=== PATIENT | male | born 1935 | race Caucasian/White ===

== ENCOUNTER 2021-10-05 10:25 | Outpatient (CLI) | payer MEDICARE, OTHER ==
[2021-10-05 11:58] LABS: Hemoglobin 13.6 g/dL (13.5-17.5); Mean Corpuscular HGB CONC 31.5 g/dL (32.0-36.0); Mean Corpuscular Hemoglobin 30.8 pg (27.0-33.0); Mean Corpuscular Volume 97.7 fl (81.2-95.1); Mean Platelet Volume 10.3 fl (7.4-10.4); Platelet Count 145 10x3/uL (150-450); Red Blood Cell (RBC) Count 4.42 10x6/uL (4.32-5.72); White Blood Cell (WBC) Count 6.9 10x3/uL (3.5-10.5)
[2021-10-05 12:10] LABS: PTT 27.8 sec (22.0-33.0); Prothrombin Time 11.4 sec (9.5-12.1)
[2021-10-05 12:14] LABS: Anion Gap 13 mmol/L (10-20); BUN (Urea Nitrogen) 32 mg/dL (8.4-25.7); Calc. Creatinine Clearance 0 mL/min (70-130); Calcium 9.3 mg/dL (7.8-10.44); Carbon Dioxide 30 mmol/L (23-31); Chloride 100 mmol/L (98-107); Glucose 219 mg/dL (83-110); Potassium 4.5 mmol/L (3.5-5.1); Sodium 138 mmol/L (136-145)
[2021-10-05 20:20] LABS: SARS-CoV-2 PCR by NAA Not Detected (NotDetected)
== END 2021-10-05 10:26 | disposition home or self-care (01) ==
LOC: CSHLAB 10:25
PROVIDERS: ATTEND Specialist
DX: Z01.812 Encounter for preprocedural laboratory examination (principal); Z20.822 Contact with and (suspected) exposure to COVID-19
CPT/HCPCS: 80048; 85027; 85610; 85730; U0003; U0005

== ENCOUNTER 2021-10-08 08:05 | Day surgery (SDC) | payer MEDICARE, OTHER ==
[2021-10-08] MEDS ORDERED: Iopamidol 300 61% 100 ML VIAL FS ONE (09:17)
[2021-10-08] MEDS ORDERED: Iopamidol 300 61% 50 ML VIAL FS ONE (09:17)
[2021-10-08] MEDS ORDERED: Ascorbic Acid 500 mg Chewable Tablet ONE (09:34)
[2021-10-08] MEDS ORDERED: Aspirin 325 MG TAB ONE (09:34)
[2021-10-08] MEDS ORDERED: Acetylcysteine 800 MG/4 ML VIAL ONE ×2 (09:45→09:50)
[2021-10-08] MEDS ORDERED: Nitroglycerin 50 MG/250 ML BOT 0 ML ONE (10:34)
[2021-10-08] MEDS ORDERED: Heparin 10,000 UNITS/ 10 ML VIAL ONE ×2 (10:35→10:37)
[2021-10-08] MEDS ORDERED: Adenosine 6 MG/2 ML VIAL ONE (10:36)
[2021-10-08] MEDS ORDERED: Lidocaine 1% PF 5 ML VIAL ONE (10:48)
[2021-10-08 10:52] VITALS: BP 167/74; TEMP 97.1
[2021-10-08] MEDS ORDERED: FLU VACC QS2021-22(65YR UP)/PF 240 MCG/0.7 ML SYRINGE IM ONE (11:30)
[2021-10-08] MEDS ORDERED: Fentanyl 100 MCG/2 ML VIAL ONE (12:10)
[2021-10-08] MEDS ORDERED: Midazolam HCl 2 mg/2 ml Vial ONE (12:11)
[2021-10-08] MEDS ORDERED: Lidocaine 1% (PF) 30 ML VIAL ONE (12:34)
== END 2021-10-08 16:24 | disposition home or self-care (01) ==
LOC: CSHSDC 08:05
PROVIDERS: ATTEND Specialist
DX: I25.10 Atherosclerotic heart disease of native coronary artery without angina pectoris (principal); I13.0 Hypertensive heart and chronic kidney disease with heart failure and stage 1 through stage 4 chronic kidney disease, or unspecified chronic kidney disease; I50.32 Chronic diastolic (congestive) heart failure; E11.22 Type 2 diabetes mellitus with diabetic chronic kidney disease; N18.9 Chronic kidney disease, unspecified; Z95.1 Presence of aortocoronary bypass graft; Z95.5 Presence of coronary angioplasty implant and graft; Z95.2 Presence of prosthetic heart valve; I27.20 Pulmonary hypertension, unspecified; I05.0 Rheumatic mitral stenosis; I70.1 Atherosclerosis of renal artery
CPT/HCPCS: 36245; 36252; 93461; C1776; 99152; 99153; C1751; J0153; J1644; J2001; J2250; J3010; Q9967

== ENCOUNTER 2022-02-21 21:10 | Inpatient (IN) | payer OTHER, MEDICAID ==
[2022-02-21] MEDS ORDERED: Cefepime 2 GM VIAL ONE ×2 (22:14→22:17)
[2022-02-21 22:25] LABS: %Eosinophils 3.6 % (0.0-6.0); %Lymphocytes 14.7 % (18.0-47.0); %Monocytes 7.9 % (0.0-10.0); %Neutrophils 72.6 % (40.0-75.0); Hemoglobin 11.6 g/dL (13.5-17.5); Mean Corpuscular HGB CONC 32.2 g/dL (32.0-36.0); Platelet Count 136 10x3/uL (150-450); RBC Distribution Width 15.1 % (11.5-14.5); Red Blood Cell (RBC) Count 3.87 10x6/uL (4.32-5.72)
[2022-02-21 22:26] LABS: #Basophils 0.1 10x3/uL (0.0-0.2); #Eosinphils 0.2 10x3/uL (0.0-0.5); #Monocytes 0.4 10x3/uL (0.0-1.1); #Neutrophils 3.6 10x3/uL (1.5-8.4)
[2022-02-21 22:40] LABS: ALT (SGPT) 33 U/L (8-55); AST (SGOT) 35 U/L (5-34); Albumin 3.8 g/dL (3.4-4.8); Alkaline Phosphatase 118 U/L (40-110); Anion Gap 15 mmol/L (10-20); BUN (Urea Nitrogen) 42 mg/dL (8.4-25.7); Calc. Creatinine Clearance 0 mL/min (70-130); Calcium 9.4 mg/dL (7.8-10.44); Carbon Dioxide 25 mmol/L (23-31); Chloride 101 mmol/L (98-107); Estimated GFR 38; Globulin 3.2 g/dL (2.4-3.5); Glucose 154 mg/dL (83-110); Potassium 3.7 mmol/L (3.5-5.1); Sodium 137 mmol/L (136-145)
[2022-02-21] MEDS ORDERED: Vancomycin 1.5 GRAM/300 ML BAG 1.5 GM in Premix Bag 1 BAG IVPB ONE (23:00)
[2022-02-22] MEDS ORDERED: Albuterol Sulfate 2.5 mg/3 ml Neb NEB PRN (03:50)
[2022-02-22] MEDS ORDERED: Dextrose 5% in Water 1,000 ML IV PRN (03:50)
[2022-02-22] MEDS ORDERED: Dextrose 50% Abboject 50 ML SYRINGE SLOW IVP PRN (03:50)
[2022-02-22] MEDS ORDERED: Morphine 4 MG/ML VIAL ONE (04:41)
[2022-02-22 05:32] LABS: #Eosinphils 0.3 10x3/uL (0.0-0.5); #Monocytes 0.4 10x3/uL (0.0-1.1); #Neutrophils 3.9 10x3/uL (1.5-8.4); %Basophils 0.7 % (0.0-2.0); %Eosinophils 5.2 % (0.0-6.0); %Lymphocytes 14.4 % (18.0-47.0); %Monocytes 8.1 % (0.0-10.0); %Neutrophils 71.4 % (40.0-75.0); Hemoglobin 10.9 g/dL (13.5-17.5); Mean Corpuscular HGB CONC 32.8 g/dL (32.0-36.0); Mean Corpuscular Hemoglobin 30.7 pg (27.0-33.0); Mean Corpuscular Volume 93.5 fl (81.2-95.1); Mean Platelet Volume 9.5 fl (7.4-10.4); Platelet Count 125 10x3/uL (150-450); Red Blood Cell (RBC) Count 3.55 10x6/uL (4.32-5.72); White Blood Cell (WBC) Count 5.4 10x3/uL (3.5-10.5)
[2022-02-22 05:45] LABS: Anion Gap 12 mmol/L (10-20); BUN (Urea Nitrogen) 39 mg/dL (8.4-25.7); Calc. Creatinine Clearance 0 mL/min (70-130); Calcium 8.8 mg/dL (7.8-10.44); Carbon Dioxide 25 mmol/L (23-31); Chloride 104 mmol/L (98-107); Estimated GFR 45; Glucose 92 mg/dL (83-110); Potassium 3.4 mmol/L (3.5-5.1); Sodium 138 mmol/L (136-145)
[2022-02-22 07:01] LABS: SARS-CoV-2 NAA Rapid Test Not Detected (NotDetected)
[2022-02-22] MEDS ORDERED: Potassium Chloride 20 MEQ TAB PO SCH (08:00)
[2022-02-22] MEDS: Multivit, Therapeutic 1 TAB PO SCH (08:37)
[2022-02-22] MEDS: Furosemide 20 MG TAB PO SCH ×2 (08:37→21:53)
[2022-02-22] MEDS: Potassium Chloride 10 MEQ TAB PO SCH (08:37)
[2022-02-22] MEDS: Sildenafil Citrate 20 MG TAB PO SCH ×3 (08:37→21:51)
[2022-02-22] MEDS: Cholecalciferol 1,000 UNITS (25 MCG) TAB PO SCH (08:37)
[2022-02-22] MEDS: hydrALAZINE 25 MG TAB PO SCH ×2 (08:37→21:50)
[2022-02-22] MEDS: Aspirin 81 mg Enteric Coated Tablet PO SCH (08:37)
[2022-02-22] MEDS: NPH, Human Insulin Isophane 300 UNIT/3 ML VIAL SQ SCH (08:38)
[2022-02-22] MEDS: Empagliflozin 10 MG TAB PO SCH (08:53)
[2022-02-22] MEDS: Sotalol HCl 80 MG TAB PO SCH ×2 (08:54→21:51)
[2022-02-22] MEDS: Ipratropium Bromide 0.06% Nasal Inhaler 15ml EA NARE SCH ×3 (08:54→17:15)
[2022-02-22] MEDS: Chlorthalidone 25 MG TAB PO SCH ×2 (08:54→21:55)
[2022-02-22] MEDS ORDERED: Apixaban 2.5 MG TAB PO SCH (09:00)
[2022-02-22] MEDS: Cefepime 2 GM in Sodium Chloride 0.9% 100 ML IVPB SCH ×2 (10:44→21:57)
[2022-02-22] MEDS: HumaLOG 300 UNITS/3 ML VIAL SC PRN (12:27)
[2022-02-22] MEDS: Atorvastatin Calcium 40 MG TAB PO SCH (21:50)
[2022-02-22] MEDS: Losartan Potassium 50 MG TAB PO SCH (21:53)
[2022-02-22] MEDS: Tamsulosin HCl 0.4 MG CAP PO SCH (21:57)
[2022-02-22] MEDS ORDERED: Vancomycin HCl 1.25 GM in Sodium Chloride 0.9% 250 ML 250 ML IVPB SCH (23:59)
[2022-02-22] MEDS ORDERED: VANCOMYCIN 1.25 GM/250 ML BAG IVPB SCH (23:59)
[2022-02-23 05:45] LABS: #Eosinphils 0.3 10x3/uL (0.0-0.5); #Monocytes 0.4 10x3/uL (0.0-1.1); #Neutrophils 4.5 10x3/uL (1.5-8.4); %Basophils 0.7 % (0.0-2.0); %Eosinophils 4.2 % (0.0-6.0); %Monocytes 7.3 % (0.0-10.0); %Neutrophils 75.5 % (40.0-75.0); Mean Corpuscular HGB CONC 32.2 g/dL (32.0-36.0); Mean Corpuscular Hemoglobin 30.6 pg (27.0-33.0); Mean Platelet Volume 10.3 fl (7.4-10.4); Platelet Count 144 10x3/uL (150-450); RBC Distribution Width 14.9 % (11.5-14.5); White Blood Cell (WBC) Count 5.9 10x3/uL (3.5-10.5)
[2022-02-23 05:51] LABS: Anion Gap 14 mmol/L (10-20); BUN (Urea Nitrogen) 36 mg/dL (8.4-25.7); Calc. Creatinine Clearance 51 mL/min (70-130); Calcium 8.9 mg/dL (7.8-10.44); Carbon Dioxide 24 mmol/L (23-31); Chloride 107 mmol/L (98-107); Estimated GFR 49; Glucose 86 mg/dL (83-110); Potassium 3.8 mmol/L (3.5-5.1); Sodium 141 mmol/L (136-145)
[2022-02-23] MEDS ORDERED: Communication Order-Pharmacy FS SCH (09:15)
[2022-02-23] MEDS: Cefepime 2 GM in Sodium Chloride 0.9% 100 ML IVPB SCH ×2 (09:17→21:03)
[2022-02-23] MEDS: Potassium Chloride 10 MEQ TAB PO SCH (09:21)
[2022-02-23] MEDS: Aspirin 81 mg Enteric Coated Tablet PO SCH (09:21)
[2022-02-23] MEDS: Cholecalciferol 1,000 UNITS (25 MCG) TAB PO SCH (09:21)
[2022-02-23] MEDS: Multivit, Therapeutic 1 TAB PO SCH (09:21)
[2022-02-23] MEDS: Sotalol HCl 80 MG TAB PO SCH ×2 (09:22→21:04)
[2022-02-23] MEDS: Sildenafil Citrate 20 MG TAB PO SCH ×3 (09:22→21:04)
[2022-02-23] MEDS: NPH, Human Insulin Isophane 300 UNIT/3 ML VIAL SQ SCH (09:26)
[2022-02-23] MEDS: Ipratropium Bromide 0.06% Nasal Inhaler 15ml EA NARE SCH ×5 (09:31→23:13)
[2022-02-23] MEDS: Furosemide 20 MG TAB PO SCH ×2 (09:37→23:13)
[2022-02-23] MEDS: Chlorthalidone 25 MG TAB PO SCH ×2 (09:37→21:03)
[2022-02-23] MEDS: hydrALAZINE 25 MG TAB PO SCH ×2 (09:37→21:19)
[2022-02-23] MEDS: Empagliflozin 10 MG TAB PO SCH (10:40)
[2022-02-23 12:44] LABS: Campy jejuni + coli by PCR Negative (Negative); STEC Shiga Toxin 1+2 Negative (Negative); Salmonella spp. by PCR Negative (Negative); Shigella spp + EIEC by PCR Negative (Negative)
[2022-02-23] MEDS: metroNIDAZOLE 500 MG TAB PO SCH ×2 (16:53→21:03)
[2022-02-23] MEDS: Losartan Potassium 50 MG TAB PO SCH (21:03)
[2022-02-23] MEDS: Tamsulosin HCl 0.4 MG CAP PO SCH (21:03)
[2022-02-23] MEDS: Atorvastatin Calcium 40 MG TAB PO SCH (21:04)
[2022-02-24 05:21] LABS: INR-International Normal Ratio 1.1; Prothrombin Time 11.7 sec (9.5-12.1)
[2022-02-24 05:27] LABS: #Eosinphils 0.3 10x3/uL (0.0-0.5); #Monocytes 0.5 10x3/uL (0.0-1.1); #Neutrophils 4.6 10x3/uL (1.5-8.4); %Basophils 0.7 % (0.0-2.0); %Eosinophils 4.4 % (0.0-6.0); %Lymphocytes 10.8 % (18.0-47.0); %Neutrophils 75.6 % (40.0-75.0); ALT (SGPT) 22 U/L (8-55); AST (SGOT) 25 U/L (5-34); Albumin 3.4 g/dL (3.4-4.8); Alkaline Phosphatase 109 U/L (40-110); Anion Gap 12 mmol/L (10-20); BUN (Urea Nitrogen) 44 mg/dL (8.4-25.7); Bilirubin, Total 1.2 mg/dL (0.2-1.2); Calc. Creatinine Clearance 51 mL/min (70-130); Calcium 8.8 mg/dL (7.8-10.44); Carbon Dioxide 25 mmol/L (23-31); Chloride 107 mmol/L (98-107); Estimated GFR 49; Glucose 103 mg/dL (83-110); Hemoglobin 10.8 g/dL (13.5-17.5); Mean Corpuscular HGB CONC 32.2 g/dL (32.0-36.0); Mean Corpuscular Hemoglobin 30.2 pg (27.0-33.0); Mean Corpuscular Volume 93.6 fl (81.2-95.1); Platelet Count 129 10x3/uL (150-450); Potassium 4.1 mmol/L (3.5-5.1); Protein, Total 6.4 g/dL (5.8-8.1); RBC Distribution Width 15.2 % (11.5-14.5); Red Blood Cell (RBC) Count 3.58 10x6/uL (4.32-5.72); Sodium 140 mmol/L (136-145); White Blood Cell (WBC) Count 6.1 10x3/uL (3.5-10.5)
[2022-02-24] MEDS: Chlorthalidone 25 MG TAB PO SCH ×2 (09:52→20:41)
[2022-02-24] MEDS: Furosemide 20 MG TAB PO SCH (09:53)
[2022-02-24] MEDS: NPH, Human Insulin Isophane 300 UNIT/3 ML VIAL SQ SCH (09:53)
[2022-02-24] MEDS: Empagliflozin 10 MG TAB PO SCH (09:54)
[2022-02-24] MEDS: metroNIDAZOLE 500 MG TAB PO SCH ×3 (09:57→20:42)
[2022-02-24] MEDS: Cholecalciferol 1,000 UNITS (25 MCG) TAB PO SCH (09:57)
[2022-02-24] MEDS: Ipratropium Bromide 0.06% Nasal Inhaler 15ml EA NARE SCH ×4 (09:57→20:43)
[2022-02-24] MEDS: Cefepime 2 GM in Sodium Chloride 0.9% 100 ML IVPB SCH (09:57)
[2022-02-24] MEDS: Potassium Chloride 10 MEQ TAB PO SCH (09:58)
[2022-02-24] MEDS: Sotalol HCl 80 MG TAB PO SCH ×2 (09:58→20:43)
[2022-02-24] MEDS: Sildenafil Citrate 20 MG TAB PO SCH ×3 (09:58→20:41)
[2022-02-24] MEDS: hydrALAZINE 25 MG TAB PO SCH ×2 (09:58→20:41)
[2022-02-24] MEDS: Aspirin 81 mg Enteric Coated Tablet PO SCH (09:58)
[2022-02-24] MEDS: Multivit, Therapeutic 1 TAB PO SCH (09:58)
[2022-02-24] MEDS ORDERED: Nitroglycerin 50 MG/250 ML BOT 0 ML ONE (11:35)
[2022-02-24] MEDS ORDERED: Heparin 10,000 UNITS/ 10 ML VIAL ONE (11:35)
[2022-02-24] MEDS ORDERED: Bivalirudin 250 MG VIAL ONE (11:36)
[2022-02-24] MEDS ORDERED: Adenosine 6 MG/2 ML VIAL ONE (11:36)
[2022-02-24] MEDS ORDERED: Lidocaine 1% 20 ML MDV ONE (11:37)
[2022-02-24] MEDS ORDERED: Sodium Chloride 0.9% 1,000 ML IV SCH (12:00)
[2022-02-24] MEDS ORDERED: Fentanyl 100 MCG/2 ML VIAL ONE (12:46)
[2022-02-24] MEDS ORDERED: Midazolam HCl 2 mg/2 ml Vial ONE (12:47)
[2022-02-24] MEDS ORDERED: TICAGRELOR 90 MG TABLET ONE (13:45)
[2022-02-24] MEDS ORDERED: Iopamidol 300 61% 100 ML VIAL FS ONE (13:51)
[2022-02-24] MEDS ORDERED: Nitroglycerin 0.4 MG TAB (25 Tab Bottle) SL PRN (14:16)
[2022-02-24] MEDS ORDERED: Sodium Chloride 0.9% 200 ML IV PRN (14:16)
[2022-02-24] MEDS ORDERED: Acetaminophen/Codeine 30-300mg Tablet PO PRN ×2 (14:16)
[2022-02-24] MEDS: Tamsulosin HCl 0.4 MG CAP PO SCH (20:41)
[2022-02-24] MEDS: Losartan Potassium 50 MG TAB PO SCH (20:41)
[2022-02-24] MEDS: Cefepime 1 GM in Sodium Chloride 0.9% 100 ML IVPB SCH (20:41)
[2022-02-24] MEDS: Atorvastatin Calcium 40 MG TAB PO SCH (20:41)
[2022-02-25] MEDS ORDERED: TICAGRELOR 90 MG TABLET PO SCH (09:00)
[2022-02-25] MEDS: Empagliflozin 10 MG TAB PO SCH (09:24)
[2022-02-25] MEDS: metroNIDAZOLE 500 MG TAB PO SCH ×3 (09:24→22:08)
[2022-02-25] MEDS: Cholecalciferol 1,000 UNITS (25 MCG) TAB PO SCH (09:24)
[2022-02-25] MEDS: Chlorthalidone 25 MG TAB PO SCH ×2 (09:24→22:09)
[2022-02-25] MEDS: NPH, Human Insulin Isophane 300 UNIT/3 ML VIAL SQ SCH (09:24)
[2022-02-25] MEDS: Clopidogrel Bisulfate 75 MG TAB PO SCH (09:24)
[2022-02-25] MEDS: Multivit, Therapeutic 1 TAB PO SCH (09:24)
[2022-02-25] MEDS: Sotalol HCl 80 MG TAB PO SCH ×2 (09:24→22:09)
[2022-02-25] MEDS: Ipratropium Bromide 0.06% Nasal Inhaler 15ml EA NARE SCH ×3 (09:25→22:11)
[2022-02-25] MEDS: Sildenafil Citrate 20 MG TAB PO SCH ×3 (09:25→22:09)
[2022-02-25] MEDS: Apixaban 2.5 MG TAB PO SCH ×2 (09:25→22:09)
[2022-02-25] MEDS: Potassium Chloride 10 MEQ TAB PO SCH (09:25)
[2022-02-25] MEDS: hydrALAZINE 25 MG TAB PO SCH (09:25)
[2022-02-25] MEDS: Cefepime 1 GM in Sodium Chloride 0.9% 100 ML IVPB SCH ×2 (11:07→22:09)
[2022-02-25] MEDS: HumaLOG 300 UNITS/3 ML VIAL SC PRN ×2 (12:36→18:00)
[2022-02-25 15:34] LABS: Anion Gap 13 mmol/L (10-20); BUN (Urea Nitrogen) 40 mg/dL (8.4-25.7); Calc. Creatinine Clearance 53 mL/min (70-130); Carbon Dioxide 25 mmol/L (23-31); Chloride 106 mmol/L (98-107); Estimated GFR 51; Glucose 165 mg/dL (83-110); Sodium 140 mmol/L (136-145)
[2022-02-25] MEDS: Tamsulosin HCl 0.4 MG CAP PO SCH (22:09)
[2022-02-25] MEDS: Losartan Potassium 50 MG TAB PO SCH (22:09)
[2022-02-25] MEDS: Atorvastatin Calcium 40 MG TAB PO SCH (22:09)
[2022-02-26] MEDS: hydrALAZINE 25 MG TAB PO SCH ×3 (01:32→21:59)
[2022-02-26 04:25] LABS: Anion Gap 14 mmol/L (10-20); BUN (Urea Nitrogen) 41 mg/dL (8.4-25.7); Calc. Creatinine Clearance 58 mL/min (70-130); Calcium 8.7 mg/dL (7.8-10.44); Carbon Dioxide 22 mmol/L (23-31); Chloride 107 mmol/L (98-107); Estimated GFR 58; Glucose 86 mg/dL (83-110); Sodium 139 mmol/L (136-145)
[2022-02-26 04:32] LABS: #Eosinphils 0.3 10x3/uL (0.0-0.5); #Monocytes 0.4 10x3/uL (0.0-1.1); %Basophils 0.7 % (0.0-2.0); %Eosinophils 5.6 % (0.0-6.0); %Lymphocytes 13.7 % (18.0-47.0); %Monocytes 7.7 % (0.0-10.0); %Neutrophils 71.9 % (40.0-75.0); Hemoglobin 10.6 g/dL (13.5-17.5); Mean Corpuscular HGB CONC 32.2 g/dL (32.0-36.0); Mean Corpuscular Hemoglobin 30.1 pg (27.0-33.0); Mean Corpuscular Volume 93.5 fl (81.2-95.1); Mean Platelet Volume 10.4 fl (7.4-10.4); Platelet Count 124 10x3/uL (150-450); RBC Distribution Width 15.8 % (11.5-14.5); Red Blood Cell (RBC) Count 3.52 10x6/uL (4.32-5.72); White Blood Cell (WBC) Count 5.5 10x3/uL (3.5-10.5)
[2022-02-26] MEDS: metroNIDAZOLE 500 MG TAB PO SCH ×3 (08:09→21:25)
[2022-02-26] MEDS: Clopidogrel Bisulfate 75 MG TAB PO SCH (08:09)
[2022-02-26] MEDS: Ipratropium Bromide 0.06% Nasal Inhaler 15ml EA NARE SCH ×3 (08:09→17:48)
[2022-02-26] MEDS: NPH, Human Insulin Isophane 300 UNIT/3 ML VIAL SQ SCH (08:10)
[2022-02-26] MEDS: Sildenafil Citrate 20 MG TAB PO SCH ×3 (08:10→21:25)
[2022-02-26] MEDS: Cholecalciferol 1,000 UNITS (25 MCG) TAB PO SCH (08:10)
[2022-02-26] MEDS: Multivit, Therapeutic 1 TAB PO SCH (08:10)
[2022-02-26] MEDS: Empagliflozin 10 MG TAB PO SCH (08:10)
[2022-02-26] MEDS: Potassium Chloride 10 MEQ TAB PO SCH (08:10)
[2022-02-26] MEDS: Chlorthalidone 25 MG TAB PO SCH ×2 (08:10→21:23)
[2022-02-26] MEDS: Apixaban 2.5 MG TAB PO SCH ×2 (08:10→21:23)
[2022-02-26] MEDS: Sotalol HCl 80 MG TAB PO SCH ×2 (08:10→21:24)
[2022-02-26] MEDS: Cefepime 1 GM in Sodium Chloride 0.9% 100 ML IVPB SCH ×2 (10:17→21:28)
[2022-02-26] MEDS: HumaLOG 300 UNITS/3 ML VIAL SC PRN ×2 (17:48→21:31)
[2022-02-26] MEDS: Losartan Potassium 50 MG TAB PO SCH (21:24)
[2022-02-26] MEDS: Tamsulosin HCl 0.4 MG CAP PO SCH (21:25)
[2022-02-26] MEDS: Atorvastatin Calcium 40 MG TAB PO SCH (21:25)
[2022-02-27 05:17] LABS: #Eosinphils 0.3 10x3/uL (0.0-0.5); #Monocytes 0.5 10x3/uL (0.0-1.1); #Neutrophils 3.7 10x3/uL (1.5-8.4); %Basophils 0.8 % (0.0-2.0); %Eosinophils 5.2 % (0.0-6.0); %Lymphocytes 13.9 % (18.0-47.0); %Monocytes 8.7 % (0.0-10.0); Hemoglobin 10.2 g/dL (13.5-17.5); Mean Corpuscular HGB CONC 31.7 g/dL (32.0-36.0); Mean Corpuscular Volume 94.7 fl (81.2-95.1); Mean Platelet Volume 10.3 fl (7.4-10.4); Platelet Count 123 10x3/uL (150-450); RBC Distribution Width 15.4 % (11.5-14.5); White Blood Cell (WBC) Count 5.2 10x3/uL (3.5-10.5)
[2022-02-27 05:19] LABS: Anion Gap 13 mmol/L (10-20); BUN (Urea Nitrogen) 42 mg/dL (8.4-25.7); Calc. Creatinine Clearance 57 mL/min (70-130); Calcium 8.8 mg/dL (7.8-10.44); Carbon Dioxide 22 mmol/L (23-31); Chloride 108 mmol/L (98-107); Estimated GFR 56; Glucose 93 mg/dL (83-110); Potassium 3.8 mmol/L (3.5-5.1); Sodium 139 mmol/L (136-145)
[2022-02-27] MEDS: Ipratropium Bromide 0.06% Nasal Inhaler 15ml EA NARE SCH ×4 (07:58→15:46)
[2022-02-27] MEDS: metroNIDAZOLE 500 MG TAB PO SCH ×3 (09:34→20:54)
[2022-02-27] MEDS: Apixaban 2.5 MG TAB PO SCH ×2 (09:34→20:54)
[2022-02-27] MEDS: Multivit, Therapeutic 1 TAB PO SCH (09:34)
[2022-02-27] MEDS: Empagliflozin 10 MG TAB PO SCH (09:34)
[2022-02-27] MEDS: Clopidogrel Bisulfate 75 MG TAB PO SCH (09:34)
[2022-02-27] MEDS: Sildenafil Citrate 20 MG TAB PO SCH ×3 (09:34→20:54)
[2022-02-27] MEDS: hydrALAZINE 25 MG TAB PO SCH ×2 (09:34→21:00)
[2022-02-27] MEDS: Sotalol HCl 80 MG TAB PO SCH ×2 (09:34→20:54)
[2022-02-27] MEDS: NPH, Human Insulin Isophane 300 UNIT/3 ML VIAL SQ SCH (09:34)
[2022-02-27] MEDS: Chlorthalidone 25 MG TAB PO SCH ×2 (09:34→20:54)
[2022-02-27] MEDS: Potassium Chloride 10 MEQ TAB PO SCH (09:34)
[2022-02-27] MEDS: Cholecalciferol 1,000 UNITS (25 MCG) TAB PO SCH (09:34)
[2022-02-27] MEDS: Cefepime 1 GM in Sodium Chloride 0.9% 100 ML IVPB SCH ×2 (09:36→20:55)
[2022-02-27] MEDS: HumaLOG 300 UNITS/3 ML VIAL SC PRN (13:02)
[2022-02-27] MEDS: Atorvastatin Calcium 40 MG TAB PO SCH (20:53)
[2022-02-27] MEDS: Losartan Potassium 50 MG TAB PO SCH (20:53)
[2022-02-27] MEDS: Tamsulosin HCl 0.4 MG CAP PO SCH (20:54)
[2022-02-28 04:21] LABS: #Eosinphils 0.3 10x3/uL (0.0-0.5); #Monocytes 0.5 10x3/uL (0.0-1.1); #Neutrophils 4.2 10x3/uL (1.5-8.4); %Basophils 0.7 % (0.0-2.0); %Eosinophils 4.9 % (0.0-6.0); %Lymphocytes 11.4 % (18.0-47.0); %Monocytes 8.9 % (0.0-10.0); %Neutrophils 73.7 % (40.0-75.0); Hemoglobin 10.6 g/dL (13.5-17.5); Mean Corpuscular Hemoglobin 30.1 pg (27.0-33.0); Mean Platelet Volume 10.3 fl (7.4-10.4); Platelet Count 128 10x3/uL (150-450); RBC Distribution Width 15.7 % (11.5-14.5); Red Blood Cell (RBC) Count 3.52 10x6/uL (4.32-5.72); White Blood Cell (WBC) Count 5.7 10x3/uL (3.5-10.5)
[2022-02-28 04:32] LABS: Anion Gap 15 mmol/L (10-20); BUN (Urea Nitrogen) 43 mg/dL (8.4-25.7); Calc. Creatinine Clearance 54 mL/min (70-130); Calcium 8.9 mg/dL (7.8-10.44); Carbon Dioxide 21 mmol/L (23-31); Chloride 107 mmol/L (98-107); Estimated GFR 53; Glucose 130 mg/dL (83-110); Potassium 4.1 mmol/L (3.5-5.1); Sodium 139 mmol/L (136-145)
[2022-02-28 08:43] LABS: INR-International Normal Ratio 1.2; PTT 31.5 sec (22.0-33.0); Prothrombin Time 12.9 sec (9.5-12.1)
[2022-02-28] MEDS: Cefepime 1 GM in Sodium Chloride 0.9% 100 ML IVPB SCH ×3 (09:54→21:19)
[2022-02-28] MEDS: metroNIDAZOLE 500 MG TAB PO SCH ×3 (10:05→20:47)
[2022-02-28] MEDS: Apixaban 2.5 MG TAB PO SCH ×2 (10:05→20:48)
[2022-02-28] MEDS: Potassium Chloride 10 MEQ TAB PO SCH (10:05)
[2022-02-28] MEDS: hydrALAZINE 25 MG TAB PO SCH (10:05)
[2022-02-28] MEDS: Cholecalciferol 1,000 UNITS (25 MCG) TAB PO SCH (10:06)
[2022-02-28] MEDS: Sotalol HCl 80 MG TAB PO SCH ×2 (10:06→20:47)
[2022-02-28] MEDS: Multivit, Therapeutic 1 TAB PO SCH (10:06)
[2022-02-28] MEDS: Chlorthalidone 25 MG TAB PO SCH (10:06)
[2022-02-28] MEDS: Ipratropium Bromide 0.06% Nasal Inhaler 15ml EA NARE SCH ×5 (10:07→20:47)
[2022-02-28] MEDS: Clopidogrel Bisulfate 75 MG TAB PO SCH (10:07)
[2022-02-28] MEDS: Empagliflozin 10 MG TAB PO SCH (10:07)
[2022-02-28] MEDS: NPH, Human Insulin Isophane 300 UNIT/3 ML VIAL SQ SCH (10:10)
[2022-02-28] MEDS: Sildenafil Citrate 20 MG TAB PO SCH ×3 (10:10→20:47)
[2022-02-28] MEDS ORDERED: Cefepime 1 GM VIAL ONE (20:43)
[2022-02-28] MEDS: Atorvastatin Calcium 40 MG TAB PO SCH (20:47)
[2022-03-01 04:41] LABS: Anion Gap 13 mmol/L (10-20); BUN (Urea Nitrogen) 42 mg/dL (8.4-25.7); Calc. Creatinine Clearance 0 mL/min (70-130); Calcium 8.7 mg/dL (7.8-10.44); Carbon Dioxide 19 mmol/L (23-31); Chloride 109 mmol/L (98-107); Estimated GFR 53; Glucose 93 mg/dL (83-110); Potassium 3.9 mmol/L (3.5-5.1); Sodium 137 mmol/L (136-145)
[2022-03-01 04:50] LABS: #Eosinphils 0.3 10x3/uL (0.0-0.5); #Monocytes 0.5 10x3/uL (0.0-1.1); #Neutrophils 3.5 10x3/uL (1.5-8.4); %Basophils 0.8 % (0.0-2.0); %Eosinophils 5.4 % (0.0-6.0); %Lymphocytes 13.7 % (18.0-47.0); %Monocytes 9.3 % (0.0-10.0); %Neutrophils 70.4 % (40.0-75.0); Hemoglobin 10.3 g/dL (13.5-17.5); Mean Corpuscular HGB CONC 31.5 g/dL (32.0-36.0); Mean Corpuscular Hemoglobin 29.9 pg (27.0-33.0); Mean Corpuscular Volume 94.8 fl (81.2-95.1); Mean Platelet Volume 10.1 fl (7.4-10.4); Platelet Count 128 10x3/uL (150-450); RBC Distribution Width 15.5 % (11.5-14.5); Red Blood Cell (RBC) Count 3.45 10x6/uL (4.32-5.72)
[2022-03-01] MEDS: Potassium Chloride 10 MEQ TAB PO SCH (09:39)
[2022-03-01] MEDS: Empagliflozin 10 MG TAB PO SCH (09:40)
[2022-03-01] MEDS: Multivit, Therapeutic 1 TAB PO SCH (09:44)
[2022-03-01] MEDS: Sotalol HCl 80 MG TAB PO SCH ×2 (09:45→21:03)
[2022-03-01] MEDS: Sildenafil Citrate 20 MG TAB PO SCH ×3 (09:45→21:04)
[2022-03-01] MEDS: Clopidogrel Bisulfate 75 MG TAB PO SCH (09:45)
[2022-03-01] MEDS: Apixaban 2.5 MG TAB PO SCH ×2 (09:46→21:03)
[2022-03-01] MEDS: metroNIDAZOLE 500 MG TAB PO SCH ×3 (09:46→21:04)
[2022-03-01] MEDS: Ipratropium Bromide 0.06% Nasal Inhaler 15ml EA NARE SCH ×4 (09:46→21:10)
[2022-03-01] MEDS: NPH, Human Insulin Isophane 300 UNIT/3 ML VIAL SQ SCH (09:48)
[2022-03-01] MEDS: HumaLOG 300 UNITS/3 ML VIAL SC PRN (12:30)
[2022-03-01] MEDS: Atorvastatin Calcium 40 MG TAB PO SCH (21:03)
[2022-03-01] MEDS: Cefepime 1 GM in Sodium Chloride 0.9% 100 ML IVPB SCH (21:04)
[2022-03-02 06:39] LABS: Sodium 136 mmol/L (136-145)
[2022-03-02 06:40] LABS: Carbon Dioxide 21 mmol/L (23-31); Chloride 107 mmol/L (98-107)
[2022-03-02 06:41] LABS: Anion Gap 12 mmol/L (10-20); BUN (Urea Nitrogen) 41 mg/dL (8.4-25.7); Calc. Creatinine Clearance 58 mL/min (70-130); Estimated GFR 57; Glucose 71 mg/dL (83-110)
[2022-03-02 06:42] LABS: Calcium 8.8 mg/dL (7.8-10.44)
[2022-03-02 06:50] LABS: #Eosinphils 0.4 10x3/uL (0.0-0.5); #Monocytes 0.6 10x3/uL (0.0-1.1); #Neutrophils 3.8 10x3/uL (1.5-8.4); %Basophils 0.7 % (0.0-2.0); %Eosinophils 6.7 % (0.0-6.0); %Lymphocytes 12.8 % (18.0-47.0); %Monocytes 10.8 % (0.0-10.0); %Neutrophils 68.6 % (40.0-75.0); Hemoglobin 10.9 g/dL (13.5-17.5); Mean Corpuscular HGB CONC 32.1 g/dL (32.0-36.0); Mean Corpuscular Hemoglobin 30.3 pg (27.0-33.0); Mean Corpuscular Volume 94.4 fl (81.2-95.1); Mean Platelet Volume 10.4 fl (7.4-10.4); Platelet Count 130 10x3/uL (150-450); RBC Distribution Width 15.4 % (11.5-14.5); White Blood Cell (WBC) Count 5.5 10x3/uL (3.5-10.5)
[2022-03-02] MEDS: Empagliflozin 10 MG TAB PO SCH (09:32)
[2022-03-02] MEDS: Ipratropium Bromide 0.06% Nasal Inhaler 15ml EA NARE SCH ×4 (09:32→20:17)
[2022-03-02] MEDS: Clopidogrel Bisulfate 75 MG TAB PO SCH (09:33)
[2022-03-02] MEDS: Apixaban 2.5 MG TAB PO SCH ×2 (09:33→20:17)
[2022-03-02] MEDS: Multivit, Therapeutic 1 TAB PO SCH (09:33)
[2022-03-02] MEDS: metroNIDAZOLE 500 MG TAB PO SCH ×3 (09:33→20:18)
[2022-03-02] MEDS: Potassium Chloride 10 MEQ TAB PO SCH (09:34)
[2022-03-02] MEDS: NPH, Human Insulin Isophane 300 UNIT/3 ML VIAL SQ SCH (09:34)
[2022-03-02] MEDS: Cholecalciferol 1,000 UNITS (25 MCG) TAB PO SCH (09:35)
[2022-03-02] MEDS: Sildenafil Citrate 20 MG TAB PO SCH ×3 (09:35→20:18)
[2022-03-02] MEDS: Sotalol HCl 80 MG TAB PO SCH ×2 (09:37→20:17)
[2022-03-02] MEDS: Cefepime 1 GM in Sodium Chloride 0.9% 100 ML IVPB SCH ×2 (11:57→21:38)
[2022-03-02] MEDS ORDERED: Cefepime 1 GM VIAL ONE (11:58)
[2022-03-02] MEDS: Atorvastatin Calcium 40 MG TAB PO SCH (20:18)
[2022-03-03] MEDS: Cefepime 1 GM in Sodium Chloride 0.9% 100 ML IVPB SCH ×2 (09:31→21:42)
[2022-03-03] MEDS: Cholecalciferol 1,000 UNITS (25 MCG) TAB PO SCH (09:31)
[2022-03-03] MEDS: Multivit, Therapeutic 1 TAB PO SCH (09:32)
[2022-03-03] MEDS: Potassium Chloride 10 MEQ TAB PO SCH (09:32)
[2022-03-03] MEDS: Sildenafil Citrate 20 MG TAB PO SCH ×3 (09:32→21:42)
[2022-03-03] MEDS: metroNIDAZOLE 500 MG TAB PO SCH ×3 (09:32→21:41)
[2022-03-03] MEDS: Apixaban 2.5 MG TAB PO SCH ×2 (09:32→21:41)
[2022-03-03] MEDS: Sotalol HCl 80 MG TAB PO SCH ×2 (09:32→21:41)
[2022-03-03] MEDS: Clopidogrel Bisulfate 75 MG TAB PO SCH (09:32)
[2022-03-03] MEDS ORDERED: Cefepime 1 GM VIAL ONE (09:34)
[2022-03-03] MEDS: NPH, Human Insulin Isophane 300 UNIT/3 ML VIAL SQ SCH (09:34)
[2022-03-03] MEDS: Empagliflozin 10 MG TAB PO SCH (09:34)
[2022-03-03 14:32] VITALS: BMI 25.3
[2022-03-03] MEDS: Ipratropium Bromide 0.06% Nasal Inhaler 15ml EA NARE SCH ×3 (21:40→21:41)
[2022-03-03] MEDS: Atorvastatin Calcium 40 MG TAB PO SCH (21:41)
[2022-03-04] MEDS: metroNIDAZOLE 500 MG TAB PO SCH ×3 (09:04→20:21)
[2022-03-04] MEDS: Cefepime 1 GM in Sodium Chloride 0.9% 100 ML IVPB SCH (09:04)
[2022-03-04] MEDS: Sildenafil Citrate 20 MG TAB PO SCH ×3 (09:05→20:21)
[2022-03-04] MEDS: Clopidogrel Bisulfate 75 MG TAB PO SCH (09:05)
[2022-03-04] MEDS: Empagliflozin 10 MG TAB PO SCH (09:05)
[2022-03-04] MEDS: Potassium Chloride 10 MEQ TAB PO SCH (09:05)
[2022-03-04] MEDS: Apixaban 2.5 MG TAB PO SCH ×2 (09:05→20:21)
[2022-03-04] MEDS: Sotalol HCl 80 MG TAB PO SCH ×2 (09:05→20:21)
[2022-03-04] MEDS: Cholecalciferol 1,000 UNITS (25 MCG) TAB PO SCH (09:05)
[2022-03-04] MEDS: Multivit, Therapeutic 1 TAB PO SCH (09:05)
[2022-03-04] MEDS: NPH, Human Insulin Isophane 300 UNIT/3 ML VIAL SQ SCH (09:06)
[2022-03-04] MEDS ORDERED: Saccharomyces boulardii 250 MG CAP PO SCH (11:15)
[2022-03-04] MEDS: Atorvastatin Calcium 40 MG TAB PO SCH (20:21)
[2022-03-05] MEDS: Saccharomyces boulardii 250 MG CAP PO SCH (08:43)
[2022-03-05] MEDS: Clopidogrel Bisulfate 75 MG TAB PO SCH (08:43)
[2022-03-05] MEDS: Cholecalciferol 1,000 UNITS (25 MCG) TAB PO SCH (08:43)
[2022-03-05] MEDS: metroNIDAZOLE 500 MG TAB PO SCH ×3 (08:43→21:21)
[2022-03-05] MEDS: Empagliflozin 10 MG TAB PO SCH (08:44)
[2022-03-05] MEDS: Apixaban 2.5 MG TAB PO SCH ×2 (08:44→21:21)
[2022-03-05] MEDS: Sildenafil Citrate 20 MG TAB PO SCH ×3 (08:44→21:22)
[2022-03-05] MEDS: NPH, Human Insulin Isophane 300 UNIT/3 ML VIAL SQ SCH (08:44)
[2022-03-05] MEDS: Potassium Chloride 10 MEQ TAB PO SCH (08:44)
[2022-03-05] MEDS: Sotalol HCl 80 MG TAB PO SCH ×2 (08:44→21:23)
[2022-03-05] MEDS: Multivit, Therapeutic 1 TAB PO SCH (08:44)
[2022-03-05] MEDS: Atorvastatin Calcium 40 MG TAB PO SCH (21:21)
[2022-03-05] MEDS: Cefepime 1 GM in Sodium Chloride 0.9% 100 ML IVPB SCH (21:45)
[2022-03-06] MEDS: Potassium Chloride 10 MEQ TAB PO SCH (09:27)
[2022-03-06] MEDS: metroNIDAZOLE 500 MG TAB PO SCH ×3 (09:27→20:55)
[2022-03-06] MEDS: Cholecalciferol 1,000 UNITS (25 MCG) TAB PO SCH (09:27)
[2022-03-06] MEDS: Multivit, Therapeutic 1 TAB PO SCH (09:27)
[2022-03-06] MEDS: Cefepime 1 GM in Sodium Chloride 0.9% 100 ML IVPB SCH ×2 (09:27→21:01)
[2022-03-06] MEDS: Saccharomyces boulardii 250 MG CAP PO SCH (09:27)
[2022-03-06] MEDS: Empagliflozin 10 MG TAB PO SCH (09:27)
[2022-03-06] MEDS: Sildenafil Citrate 20 MG TAB PO SCH ×3 (09:27→20:57)
[2022-03-06] MEDS ORDERED: Cefepime 1 GM VIAL ONE ×2 (09:29)
[2022-03-06] MEDS: Apixaban 2.5 MG TAB PO SCH ×2 (09:33→20:58)
[2022-03-06] MEDS: Sotalol HCl 80 MG TAB PO SCH ×2 (09:33→20:57)
[2022-03-06] MEDS: Clopidogrel Bisulfate 75 MG TAB PO SCH (09:34)
[2022-03-06] MEDS: NPH, Human Insulin Isophane 300 UNIT/3 ML VIAL SQ SCH (09:34)
[2022-03-06] MEDS: Atorvastatin Calcium 40 MG TAB PO SCH (20:58)
[2022-03-07] MEDS: HumaLOG 300 UNITS/3 ML VIAL SC PRN (03:51)
[2022-03-07] MEDS: Cefepime 1 GM in Sodium Chloride 0.9% 100 ML IVPB SCH ×2 (09:04→09:06)
[2022-03-07] MEDS: metroNIDAZOLE 500 MG TAB PO SCH ×3 (09:05→21:23)
[2022-03-07] MEDS: Sotalol HCl 80 MG TAB PO SCH ×2 (09:05→21:22)
[2022-03-07] MEDS: Sildenafil Citrate 20 MG TAB PO SCH ×3 (09:05→21:23)
[2022-03-07] MEDS: Potassium Chloride 10 MEQ TAB PO SCH (09:05)
[2022-03-07] MEDS: Clopidogrel Bisulfate 75 MG TAB PO SCH (09:05)
[2022-03-07] MEDS: Empagliflozin 10 MG TAB PO SCH (09:05)
[2022-03-07] MEDS: Multivit, Therapeutic 1 TAB PO SCH (09:05)
[2022-03-07] MEDS: Saccharomyces boulardii 250 MG CAP PO SCH (09:05)
[2022-03-07] MEDS: Apixaban 2.5 MG TAB PO SCH ×2 (09:06→21:23)
[2022-03-07] MEDS: Cholecalciferol 1,000 UNITS (25 MCG) TAB PO SCH (09:06)
[2022-03-07] MEDS: NPH, Human Insulin Isophane 300 UNIT/3 ML VIAL SC SCH (09:06)
[2022-03-07] MEDS: Atorvastatin Calcium 40 MG TAB PO SCH (21:23)
[2022-03-08] MEDS ORDERED: cefTRIAXone\\ROCEPHIN 2 GM in Sodium Chloride 0.9% 100 ML IVPB SCH (09:30)
[2022-03-08] MEDS: Empagliflozin 10 MG TAB PO SCH (09:32)
[2022-03-08] MEDS: Clopidogrel Bisulfate 75 MG TAB PO SCH (09:32)
[2022-03-08] MEDS: metroNIDAZOLE 500 MG TAB PO SCH ×3 (09:32→21:42)
[2022-03-08] MEDS: Cholecalciferol 1,000 UNITS (25 MCG) TAB PO SCH (09:32)
[2022-03-08] MEDS: Multivit, Therapeutic 1 TAB PO SCH (09:32)
[2022-03-08] MEDS: Sildenafil Citrate 20 MG TAB PO SCH ×3 (09:32→21:43)
[2022-03-08] MEDS: Sotalol HCl 80 MG TAB PO SCH ×2 (09:32→21:43)
[2022-03-08] MEDS: Potassium Chloride 10 MEQ TAB PO SCH (09:32)
[2022-03-08] MEDS: Saccharomyces boulardii 250 MG CAP PO SCH (09:32)
[2022-03-08] MEDS: Apixaban 2.5 MG TAB PO SCH ×2 (09:32→21:42)
[2022-03-08] MEDS: NPH, Human Insulin Isophane 300 UNIT/3 ML VIAL SC SCH (09:33)
[2022-03-08] MEDS ORDERED: Ondansetron PF 4 MG/2 ML Vial IVP PRN (09:56)
[2022-03-08] MEDS: HumaLOG 300 UNITS/3 ML VIAL SC PRN (11:54)
[2022-03-08] MEDS: Ipratropium Bromide 0.06% Nasal Inhaler 15ml EA NARE SCH ×2 (21:42→21:56)
[2022-03-08] MEDS: Atorvastatin Calcium 40 MG TAB PO SCH (21:43)
[2022-03-09] MEDS: HumaLOG 300 UNITS/3 ML VIAL SC PRN (05:35)
[2022-03-09 08:52] VITALS: BP 124/63; TEMP 97.9
[2022-03-09] MEDS: Cholecalciferol 1,000 UNITS (25 MCG) TAB PO SCH (09:25)
[2022-03-09] MEDS: Apixaban 2.5 MG TAB PO SCH (09:25)
[2022-03-09] MEDS: Multivit, Therapeutic 1 TAB PO SCH (09:26)
[2022-03-09] MEDS: Potassium Chloride 10 MEQ TAB PO SCH (09:26)
[2022-03-09] MEDS: metroNIDAZOLE 500 MG TAB PO SCH (09:26)
[2022-03-09] MEDS: Sildenafil Citrate 20 MG TAB PO SCH (09:26)
[2022-03-09] MEDS: Clopidogrel Bisulfate 75 MG TAB PO SCH (09:26)
[2022-03-09] MEDS: Saccharomyces boulardii 250 MG CAP PO SCH (09:26)
[2022-03-09] MEDS: Sotalol HCl 80 MG TAB PO SCH (09:26)
[2022-03-09] MEDS: Empagliflozin 10 MG TAB PO SCH (09:26)
[2022-03-09] MEDS: NPH, Human Insulin Isophane 300 UNIT/3 ML VIAL SC SCH (09:27)
[2022-03-09] MEDS: Ipratropium Bromide 0.06% Nasal Inhaler 15ml EA NARE SCH (09:28)
== END 2022-03-09 10:03 | DRG 253 ==
LOC: CSHERS 21:10 → CSHICU 02-22 06:48 → CSHTELE 02-22 18:05
PROVIDERS: ADMIT Family Medicine; ATTEND Internal Medicine
PROC: 047P3ZZ Dilation of Right Anterior Tibial Artery, Percutaneous Approach (ICD-10-PCS; principal; 2022-02-24)
PROC: B4101ZZ Fluoroscopy of Abdominal Aorta using Low Osmolar Contrast (ICD-10-PCS; 2022-02-24)
PROC: B41F1ZZ Fluoroscopy of Right Lower Extremity Arteries using Low Osmolar Contrast (ICD-10-PCS; 2022-02-24)
PROC: B41G1ZZ Fluoroscopy of Left Lower Extremity Arteries using Low Osmolar Contrast (ICD-10-PCS; 2022-02-24)
PROC: 02HV33Z Insertion of Infusion Device into Superior Vena Cava, Percutaneous Approach (ICD-10-PCS; 2022-02-28)
PROC: B5181ZA Fluoroscopy of Superior Vena Cava using Low Osmolar Contrast, Guidance (ICD-10-PCS; 2022-02-28)
PROC: B548ZZA Ultrasonography of Superior Vena Cava, Guidance (ICD-10-PCS; 2022-02-28)
DX: E11.51 Type 2 diabetes mellitus with diabetic peripheral angiopathy without gangrene (principal); I50.32 Chronic diastolic (congestive) heart failure; M86.8X8 Other osteomyelitis, other site; I47.2 Ventricular tachycardia; I13.0 Hypertensive heart and chronic kidney disease with heart failure and stage 1 through stage 4 chronic kidney disease, or unspecified chronic kidney disease; E11.42 Type 2 diabetes mellitus with diabetic polyneuropathy; I48.0 Paroxysmal atrial fibrillation; E78.5 Hyperlipidemia, unspecified; I25.10 Atherosclerotic heart disease of native coronary artery without angina pectoris; N40.0 Benign prostatic hyperplasia without lower urinary tract symptoms; E11.22 Type 2 diabetes mellitus with diabetic chronic kidney disease; E11.628 Type 2 diabetes mellitus with other skin complications; N18.32 Chronic kidney disease, stage 3b; E78.00 Pure hypercholesterolemia, unspecified; E11.69 Type 2 diabetes mellitus with other specified complication; L03.031 Cellulitis of right toe; I95.9 Hypotension, unspecified; I27.20 Pulmonary hypertension, unspecified; Z20.822 Contact with and (suspected) exposure to COVID-19; E11.621 Type 2 diabetes mellitus with foot ulcer; L97.519 Non-pressure chronic ulcer of other part of right foot with unspecified severity; Z88.0 Allergy status to penicillin; Z79.899 Other long term (current) drug therapy; Z79.82 Long term (current) use of aspirin; Z79.01 Long term (current) use of anticoagulants; Z79.4 Long term (current) use of insulin; Z95.1 Presence of aortocoronary bypass graft; Z95.5 Presence of coronary angioplasty implant and graft; I69.398 Other sequelae of cerebral infarction; Z87.891 Personal history of nicotine dependence; Z79.51 Long term (current) use of inhaled steroids
CPT/HCPCS: 36140; 36247; 36415; 36416; 36569; 37228; 71045; 75625; 75716; 80048; 80053; 83605; 83630; 83735; 85025; 85347; 85610; 85652; 85730; 87040; 87324; 87449; 87505; 93005; 93010; 93923; 96365; 96366; 96367; 97139; 99152; 99153; C1725; C1751; C1769; C1894; J0153; J0583; J0692; J0696; J1644; J1815; J2250; J2270; J2405; J3010; J3370; J3490; J7050; Q9967; U0003; U0005

== ENCOUNTER 2022-04-26 22:24 | Inpatient (IN) | payer OTHER, MEDICAID ==
[2022-04-26] MEDS ORDERED: Ondansetron PF 4 MG/2 ML Vial IVP PRN (23:47)
[2022-04-27] MEDS ORDERED: Dextrose 50% Abboject 50 ML SYRINGE SLOW IVP PRN (01:04)
[2022-04-27] MEDS ORDERED: Dextrose 5% in Water 1,000 ML IV PRN (01:04)
[2022-04-27 05:18] LABS: #Basophils 0.1 10x3/uL (0.0-0.2); #Eosinphils 0.1 10x3/uL (0.0-0.5); #Monocytes 0.5 10x3/uL (0.0-1.1); %Basophils 1.1 % (0.0-2.0); %Eosinophils 2.4 % (0.0-6.0); %Lymphocytes 15.5 % (18.0-47.0); %Monocytes 8.4 % (0.0-10.0); %Neutrophils 72.2 % (40.0-75.0); Hemoglobin 13.4 g/dL (13.5-17.5); Mean Corpuscular HGB CONC 32.1 g/dL (32.0-36.0); Mean Corpuscular Hemoglobin 27.6 pg (27.0-33.0); Mean Platelet Volume 9.4 fl (7.4-10.4); Platelet Count 142 10x3/uL (150-450); Red Blood Cell (RBC) Count 4.85 10x6/uL (4.32-5.72); White Blood Cell (WBC) Count 5.5 10x3/uL (3.5-10.5)
[2022-04-27 05:31] LABS: Anion Gap 12 mmol/L (10-20); BUN (Urea Nitrogen) 23 mg/dL (8.4-25.7); Calc. Creatinine Clearance 89 mL/min (70-130); Calcium 8.8 mg/dL (7.8-10.44); Carbon Dioxide 30 mmol/L (23-31); Chloride 92 mmol/L (98-107); Estimated GFR 84; Glucose 116 mg/dL (83-110); Potassium 5.2 mmol/L (3.5-5.1); Sodium 129 mmol/L (136-145)
[2022-04-27] MEDS: Furosemide 20 MG/2 ML VIAL SLOW IVP SCH ×2 (05:56→13:54)
[2022-04-27] MEDS: Apixaban 2.5 MG TAB PO SCH ×2 (09:05→21:26)
[2022-04-27] MEDS ORDERED: Amiodarone 200 MG TAB PO SCH (11:00)
[2022-04-27] MEDS: HumaLOG 300 UNITS/3 ML VIAL SC PRN (13:54)
[2022-04-27 14:08] LABS: Anion Gap 10 mmol/L (10-20); BUN (Urea Nitrogen) 23 mg/dL (8.4-25.7); Calc. Creatinine Clearance 86 mL/min (70-130); Calcium 8.7 mg/dL (7.8-10.44); Carbon Dioxide 32 mmol/L (23-31); Chloride 91 mmol/L (98-107); Estimated GFR 82; Glucose 149 mg/dL (83-110); Potassium 5.1 mmol/L (3.5-5.1); Sodium 128 mmol/L (136-145)
[2022-04-27] MEDS: Melatonin 3 MG TAB PO SCH (21:26)
[2022-04-27] MEDS: Atorvastatin Calcium 40 MG TAB PO SCH (21:26)
[2022-04-28 05:30] LABS: Anion Gap 14 mmol/L (10-20); BUN (Urea Nitrogen) 22 mg/dL (8.4-25.7); Calc. Creatinine Clearance 78 mL/min (70-130); Calcium 8.7 mg/dL (7.8-10.44); Carbon Dioxide 30 mmol/L (23-31); Chloride 91 mmol/L (98-107); Estimated GFR 73; Glucose 133 mg/dL (83-110); Potassium 5.4 mmol/L (3.5-5.1); Sodium 130 mmol/L (136-145)
[2022-04-28 05:38] LABS: #Eosinphils 0.2 10x3/uL (0.0-0.5); #Monocytes 0.5 10x3/uL (0.0-1.1); #Neutrophils 5.1 10x3/uL (1.5-8.4); %Basophils 0.6 % (0.0-2.0); %Eosinophils 2.9 % (0.0-6.0); %Lymphocytes 10.9 % (18.0-47.0); Hemoglobin 12.8 g/dL (13.5-17.5); Mean Corpuscular HGB CONC 31.4 g/dL (32.0-36.0); Mean Corpuscular Hemoglobin 27.4 pg (27.0-33.0); Mean Corpuscular Volume 87.2 fl (81.2-95.1); Mean Platelet Volume 9.8 fl (7.4-10.4); Platelet Count 140 10x3/uL (150-450); RBC Distribution Width 16.1 % (11.5-14.5); Red Blood Cell (RBC) Count 4.68 10x6/uL (4.32-5.72); White Blood Cell (WBC) Count 6.6 10x3/uL (3.5-10.5)
[2022-04-28] MEDS: Furosemide 20 MG/2 ML VIAL SLOW IVP SCH ×2 (06:19→14:47)
[2022-04-28] MEDS: Cholecalciferol 1,000 UNITS (25 MCG) TAB PO SCH (08:41)
[2022-04-28] MEDS: Empagliflozin 10 MG TAB PO SCH (08:41)
[2022-04-28] MEDS: Saccharomyces boulardii 250 MG CAP PO SCH (08:41)
[2022-04-28] MEDS: Amiodarone 200 MG TAB PO SCH (08:41)
[2022-04-28] MEDS: Clopidogrel Bisulfate 75 MG TAB PO SCH (08:41)
[2022-04-28] MEDS: Apixaban 2.5 MG TAB PO SCH (08:41)
[2022-04-28] MEDS: HumaLOG 300 UNITS/3 ML VIAL SC PRN (12:01)
[2022-04-28] MEDS: Melatonin 3 MG TAB PO SCH (20:41)
[2022-04-28] MEDS: Atorvastatin Calcium 40 MG TAB PO SCH (20:41)
[2022-04-29 04:38] LABS: #Eosinphils 0.2 10x3/uL (0.0-0.5); #Monocytes 0.3 10x3/uL (0.0-1.1); #Neutrophils 4.2 10x3/uL (1.5-8.4); %Basophils 0.5 % (0.0-2.0); %Eosinophils 3.1 % (0.0-6.0); %Lymphocytes 12.1 % (18.0-47.0); %Monocytes 6.2 % (0.0-10.0); %Neutrophils 77.7 % (40.0-75.0); Hemoglobin 12.7 g/dL (13.5-17.5); Mean Corpuscular HGB CONC 31.9 g/dL (32.0-36.0); Mean Corpuscular Hemoglobin 27.3 pg (27.0-33.0); Mean Corpuscular Volume 85.4 fl (81.2-95.1); Mean Platelet Volume 9.6 fl (7.4-10.4); Platelet Count 112 10x3/uL (150-450); Red Blood Cell (RBC) Count 4.66 10x6/uL (4.32-5.72); White Blood Cell (WBC) Count 5.5 10x3/uL (3.5-10.5)
[2022-04-29 04:43] LABS: Anion Gap 15 mmol/L (10-20); BUN (Urea Nitrogen) 20 mg/dL (8.4-25.7); Calc. Creatinine Clearance 90 mL/min (70-130); Calcium 8.7 mg/dL (7.8-10.44); Carbon Dioxide 29 mmol/L (23-31); Chloride 92 mmol/L (98-107); Estimated GFR 85; Glucose 136 mg/dL (83-110); Potassium 4.3 mmol/L (3.5-5.1); Sodium 132 mmol/L (136-145)
[2022-04-29] MEDS: Furosemide 20 MG/2 ML VIAL SLOW IVP SCH ×2 (06:29→14:43)
[2022-04-29] MEDS: Clopidogrel Bisulfate 75 MG TAB PO SCH (08:37)
[2022-04-29] MEDS: Cholecalciferol 1,000 UNITS (25 MCG) TAB PO SCH (08:37)
[2022-04-29] MEDS: Empagliflozin 10 MG TAB PO SCH (08:37)
[2022-04-29] MEDS: Saccharomyces boulardii 250 MG CAP PO SCH (08:37)
[2022-04-29] MEDS: Amiodarone 200 MG TAB PO SCH (08:37)
[2022-04-29 09:31] LABS: INR-International Normal Ratio 1.1; Prothrombin Time 12.3 sec (9.5-12.1)
[2022-04-29] MEDS ORDERED: Sodium Bicarbonate 2.5 MEQ/5 ML VIAL ONE (10:42)
[2022-04-29] MEDS ORDERED: Lidocaine 1% PF 5 ML VIAL ONE (10:42)
[2022-04-29] MEDS: HumaLOG 300 UNITS/3 ML VIAL SC PRN (16:44)
[2022-04-29 20:22] LABS: Pleural Fluid, Protein 1.3 g/dL
[2022-04-29] MEDS: Melatonin 3 MG TAB PO SCH (20:34)
[2022-04-29] MEDS: Atorvastatin Calcium 40 MG TAB PO SCH (20:34)
[2022-04-30] MEDS: Furosemide 20 MG/2 ML VIAL SLOW IVP SCH (05:56)
[2022-04-30] MEDS: Cholecalciferol 1,000 UNITS (25 MCG) TAB PO SCH (09:45)
[2022-04-30] MEDS: Clopidogrel Bisulfate 75 MG TAB PO SCH (09:45)
[2022-04-30] MEDS: Saccharomyces boulardii 250 MG CAP PO SCH (09:45)
[2022-04-30] MEDS: Empagliflozin 10 MG TAB PO SCH (09:45)
[2022-04-30] MEDS: Amiodarone 200 MG TAB PO SCH (09:47)
[2022-04-30] MEDS: HumaLOG 300 UNITS/3 ML VIAL SC PRN (21:37)
[2022-04-30] MEDS: Atorvastatin Calcium 40 MG TAB PO SCH (21:37)
[2022-04-30] MEDS: Melatonin 3 MG TAB PO SCH (21:37)
[2022-05-01] MEDS ORDERED: Vancomycin 1 GM in Premix Bag 1 BAG IVPB SCH (01:15)
[2022-05-01] MEDS: Vancomycin 1.5 GRAM/300 ML BAG 1.5 GM in Premix Bag 1 BAG IVPB SCH (01:25)
[2022-05-01 04:38] LABS: Anion Gap 15 mmol/L (10-20); BUN (Urea Nitrogen) 17 mg/dL (8.4-25.7); Calc. Creatinine Clearance 105 mL/min (70-130); Calcium 8.4 mg/dL (7.8-10.44); Carbon Dioxide 31 mmol/L (23-31); Chloride 89 mmol/L (98-107); Estimated GFR 89; Glucose 117 mg/dL (83-110); Potassium 3.9 mmol/L (3.5-5.1); Sodium 131 mmol/L (136-145)
[2022-05-01] MEDS: Amiodarone 200 MG TAB PO SCH (09:43)
[2022-05-01] MEDS: Saccharomyces boulardii 250 MG CAP PO SCH (09:43)
[2022-05-01] MEDS: Empagliflozin 10 MG TAB PO SCH (09:43)
[2022-05-01] MEDS: Clopidogrel Bisulfate 75 MG TAB PO SCH (09:44)
[2022-05-01] MEDS: Cholecalciferol 1,000 UNITS (25 MCG) TAB PO SCH (09:45)
[2022-05-01] MEDS: HumaLOG 300 UNITS/3 ML VIAL SC PRN (12:56)
[2022-05-01] MEDS: Furosemide 20 MG TAB PO SCH (12:56)
[2022-05-01] MEDS: Melatonin 3 MG TAB PO SCH (22:13)
[2022-05-01] MEDS: Atorvastatin Calcium 40 MG TAB PO SCH (22:13)
[2022-05-02] MEDS: Vancomycin 1.5 GRAM/300 ML BAG 1.5 GM in Premix Bag 1 BAG IVPB SCH (02:13)
[2022-05-02] MEDS ORDERED: Sodium Bicarbonate 2.5 MEQ/5 ML VIAL ONE (09:34)
[2022-05-02] MEDS: Amiodarone 200 MG TAB PO SCH (11:05)
[2022-05-02] MEDS: Cholecalciferol 1,000 UNITS (25 MCG) TAB PO SCH (11:08)
[2022-05-02] MEDS: Clopidogrel Bisulfate 75 MG TAB PO SCH (11:08)
[2022-05-02] MEDS: Empagliflozin 10 MG TAB PO SCH (11:09)
[2022-05-02] MEDS: Saccharomyces boulardii 250 MG CAP PO SCH (11:09)
[2022-05-02] MEDS: Furosemide 20 MG TAB PO SCH (13:15)
[2022-05-02] MEDS: Atorvastatin Calcium 40 MG TAB PO SCH (21:36)
[2022-05-02] MEDS: Melatonin 3 MG TAB PO SCH (21:36)
[2022-05-02] MEDS: HumaLOG 300 UNITS/3 ML VIAL SC PRN (21:38)
[2022-05-03 01:14] LABS: Vancomycin, Trough 14.6 ug/mL
[2022-05-03] MEDS: Vancomycin 1.5 GRAM/300 ML BAG 1.5 GM in Premix Bag 1 BAG IVPB SCH (01:26)
[2022-05-03] MEDS: Cholecalciferol 1,000 UNITS (25 MCG) TAB PO SCH (08:49)
[2022-05-03] MEDS: Empagliflozin 10 MG TAB PO SCH (08:49)
[2022-05-03] MEDS: Saccharomyces boulardii 250 MG CAP PO SCH (08:49)
[2022-05-03] MEDS: Clopidogrel Bisulfate 75 MG TAB PO SCH (08:50)
[2022-05-03] MEDS: Amiodarone 200 MG TAB PO SCH (08:51)
[2022-05-03 10:42] LABS: Anion Gap 15 mmol/L (10-20); BUN (Urea Nitrogen) 22 mg/dL (8.4-25.7); Calc. Creatinine Clearance 82 mL/min (70-130); Calcium 8.2 mg/dL (7.8-10.44); Carbon Dioxide 29 mmol/L (23-31); Chloride 91 mmol/L (98-107); Estimated GFR 78; Glucose 248 mg/dL (83-110); Sodium 131 mmol/L (136-145)
[2022-05-03 10:46] LABS: Potassium 4.4 mmol/L (3.5-5.1)
[2022-05-03] MEDS: HumaLOG 300 UNITS/3 ML VIAL SC PRN ×3 (11:27→20:29)
[2022-05-03] MEDS: Furosemide 20 MG TAB PO SCH (14:10)
[2022-05-03 14:39] VITALS: BMI 28.0
[2022-05-03] MEDS: Atorvastatin Calcium 40 MG TAB PO SCH (20:28)
[2022-05-03] MEDS: Melatonin 3 MG TAB PO SCH (20:29)
[2022-05-03] MEDS: Acetaminophen 325 MG TAB PO PRN (20:29)
[2022-05-03] MEDS: Apixaban 2.5 MG TAB PO SCH (20:29)
[2022-05-03] MEDS: Docusate 100 MG CAP PO SCH (21:31)
[2022-05-04] MEDS: Cholecalciferol 1,000 UNITS (25 MCG) TAB PO SCH (10:42)
[2022-05-04] MEDS: Apixaban 2.5 MG TAB PO SCH ×2 (10:44→20:59)
[2022-05-04] MEDS: Clopidogrel Bisulfate 75 MG TAB PO SCH (10:44)
[2022-05-04] MEDS: Amiodarone 200 MG TAB PO SCH (10:45)
[2022-05-04] MEDS: Saccharomyces boulardii 250 MG CAP PO SCH (10:45)
[2022-05-04] MEDS: Docusate 100 MG CAP PO SCH ×2 (10:45→21:00)
[2022-05-04] MEDS: Acetaminophen 325 MG TAB PO PRN (10:46)
[2022-05-04] MEDS: Polyethylene Glycol 3350 17 GM Packet PO SCH (10:46)
[2022-05-04] MEDS: Empagliflozin 10 MG TAB PO SCH (10:46)
[2022-05-04] MEDS: Furosemide 20 MG TAB PO SCH (13:17)
[2022-05-04] MEDS: Atorvastatin Calcium 40 MG TAB PO SCH (20:59)
[2022-05-04] MEDS: Melatonin 3 MG TAB PO SCH (21:00)
[2022-05-04] MEDS: HumaLOG 300 UNITS/3 ML VIAL SC PRN (23:29)
[2022-05-05] MEDS: HumaLOG 300 UNITS/3 ML VIAL SC PRN ×2 (06:43→16:50)
[2022-05-05 08:09] LABS: Fluid, pH - Pleural Fld Greater than 7.50 (7.60 - 7.66)
[2022-05-05] MEDS: Polyethylene Glycol 3350 17 GM Packet PO SCH (08:18)
[2022-05-05] MEDS: Apixaban 2.5 MG TAB PO SCH ×2 (08:19→22:11)
[2022-05-05] MEDS: Amiodarone 200 MG TAB PO SCH (08:20)
[2022-05-05] MEDS: Docusate 100 MG CAP PO SCH ×2 (08:20→22:11)
[2022-05-05] MEDS: Saccharomyces boulardii 250 MG CAP PO SCH (08:20)
[2022-05-05] MEDS: Clopidogrel Bisulfate 75 MG TAB PO SCH (08:20)
[2022-05-05] MEDS: Cholecalciferol 1,000 UNITS (25 MCG) TAB PO SCH (08:20)
[2022-05-05] MEDS: Empagliflozin 10 MG TAB PO SCH (08:23)
[2022-05-05 12:08] LABS: Hemoglobin 11.8 g/dL (13.5-17.5); Mean Corpuscular HGB CONC 32.7 g/dL (32.0-36.0); Mean Corpuscular Hemoglobin 27.6 pg (27.0-33.0); Mean Corpuscular Volume 84.5 fl (81.2-95.1); Mean Platelet Volume 10.2 fl (7.4-10.4); Platelet Count 137 10x3/uL (150-450); RBC Distribution Width 16.8 % (11.5-14.5); Red Blood Cell (RBC) Count 4.27 10x6/uL (4.32-5.72); White Blood Cell (WBC) Count 6.1 10x3/uL (3.5-10.5)
[2022-05-05] MEDS: Furosemide 20 MG TAB PO SCH (12:21)
[2022-05-05] MEDS ORDERED: Tamsulosin HCl 0.4 MG CAP PO SCH (21:00)
[2022-05-05] MEDS: Atorvastatin Calcium 40 MG TAB PO SCH (22:11)
[2022-05-05] MEDS: Melatonin 3 MG TAB PO SCH (22:11)
[2022-05-06] MEDS: HumaLOG 300 UNITS/3 ML VIAL SC PRN ×2 (07:39→12:18)
[2022-05-06] MEDS: Cholecalciferol 1,000 UNITS (25 MCG) TAB PO SCH (09:31)
[2022-05-06] MEDS: Clopidogrel Bisulfate 75 MG TAB PO SCH (09:31)
[2022-05-06] MEDS: Polyethylene Glycol 3350 17 GM Packet PO SCH (09:31)
[2022-05-06] MEDS: Amiodarone 200 MG TAB PO SCH (09:32)
[2022-05-06] MEDS: Saccharomyces boulardii 250 MG CAP PO SCH (09:32)
[2022-05-06] MEDS: Apixaban 2.5 MG TAB PO SCH (09:32)
[2022-05-06] MEDS: Docusate 100 MG CAP PO SCH (09:32)
[2022-05-06] MEDS: Empagliflozin 10 MG TAB PO SCH (09:32)
[2022-05-06] MEDS: Furosemide 20 MG TAB PO SCH (11:31)
[2022-05-06 12:02] VITALS: BP 117/68; TEMP 96.8
== END 2022-05-06 15:17 | disposition hospice, home (50) | DRG 291 ==
LOC: CSHTELE 22:24
PROVIDERS: ADMIT Internal Medicine; ATTEND Family Medicine
PROC: 0W993ZZ Drainage of Right Pleural Cavity, Percutaneous Approach (ICD-10-PCS; principal; 2022-04-29)
PROC: 0W9B3ZZ Drainage of Left Pleural Cavity, Percutaneous Approach (ICD-10-PCS; 2022-05-02)
DX: I13.0 Hypertensive heart and chronic kidney disease with heart failure and stage 1 through stage 4 chronic kidney disease, or unspecified chronic kidney disease (principal); I50.33 Acute on chronic diastolic (congestive) heart failure; L89.153 Pressure ulcer of sacral region, stage 3; J96.21 Acute and chronic respiratory failure with hypoxia; E87.1 Hypo-osmolality and hyponatremia; J90 Pleural effusion, not elsewhere classified; Z66 Do not resuscitate; Z51.5 Encounter for palliative care; N18.30 Chronic kidney disease, stage 3 unspecified; E11.22 Type 2 diabetes mellitus with diabetic chronic kidney disease; E78.5 Hyperlipidemia, unspecified; D63.1 Anemia in chronic kidney disease; E11.51 Type 2 diabetes mellitus with diabetic peripheral angiopathy without gangrene; E11.40 Type 2 diabetes mellitus with diabetic neuropathy, unspecified; N40.0 Benign prostatic hyperplasia without lower urinary tract symptoms; I27.20 Pulmonary hypertension, unspecified; E87.5 Hyperkalemia; I48.0 Paroxysmal atrial fibrillation; E78.2 Mixed hyperlipidemia; G89.29 Other chronic pain; Z98.41 Cataract extraction status, right eye; Z96.1 Presence of intraocular lens; I34.2 Nonrheumatic mitral (valve) stenosis; I25.118 Atherosclerotic heart disease of native coronary artery with other forms of angina pectoris; I70.213 Atherosclerosis of native arteries of extremities with intermittent claudication, bilateral legs; R53.81 Other malaise; E11.628 Type 2 diabetes mellitus with other skin complications; L89.629 Pressure ulcer of left heel, unspecified stage; L89.619 Pressure ulcer of right heel, unspecified stage; Z96.0 Presence of urogenital implants; B95.7 Other staphylococcus as the cause of diseases classified elsewhere; Z20.822 Contact with and (suspected) exposure to COVID-19; Z86.73 Personal history of transient ischemic attack (TIA), and cerebral infarction without residual deficits; Z86.19 Personal history of other infectious and parasitic diseases; Z88.0 Allergy status to penicillin; Z74.01 Bed confinement status; Z98.42 Cataract extraction status, left eye; Z79.899 Other long term (current) drug therapy; Z79.51 Long term (current) use of inhaled steroids; Z79.4 Long term (current) use of insulin; Z95.1 Presence of aortocoronary bypass graft; Z95.5 Presence of coronary angioplasty implant and graft; Z95.2 Presence of prosthetic heart valve; Z98.890 Other specified postprocedural states; Z87.891 Personal history of nicotine dependence; Z80.1 Family history of malignant neoplasm of trachea, bronchus and lung
CPT/HCPCS: 32555; 36415; 36416; 71045; 71046; 80048; 80202; 83615; 83986; 84157; 85025; 85027; 85610; 87070; 87077; 87186; 87205; 87811; 88112; 93005; 93010; 93306; 94760; 97139; J1815; J1940; J3370; U0003; U0005